=== PATIENT | female | born 1945 | race Caucasian/White ===

== ENCOUNTER → 2017-02-13 | Outpatient (CLI) | payer OTHER | LOC: FIMAGING 10:19 | PROVIDERS: ATTEND Obstetrics & Gynecology | DX: Z12.31 Encounter for screening mammogram for malignant neoplasm of breast (principal); R92.8 Other abnormal and inconclusive findings on diagnostic imaging of breast | CPT/HCPCS: G0202 ==

== ENCOUNTER → 2017-02-27 | Outpatient (CLI) | payer OTHER | LOC: FIMAGING 09:36 | PROVIDERS: ATTEND Obstetrics & Gynecology | DX: Z03.89 Encounter for observation for other suspected diseases and conditions ruled out (principal) | CPT/HCPCS: G0206 ==

== ENCOUNTER 2017-12-30 08:32 | Emergency (ER) | payer OTHER ==
[2017-12-30 08:46] VITALS: BP 156/100
--- NOTE | 2017-12-30 09:01 | EDPHY ---
H & P Stated Complaint: Hx of chronic sinus for 6-7 years, "feel terrible", photophobia Time Seen by Provider: 12/30/17 08:40 HPI/ROS: CHIEF COMPLAINT: Chronic sinusitis HISTORY OF PRESENT ILLNESS: The patient presents to the ED with symptoms surrounding chronic sinusitis. The patient has been struggling with this condition intermittently for the past 6 7 years. The patient has been recently referred to both an police specialist in the ENT. She has yet to make that appointment. The patient informs me that she no longer has a primary care relationship is feeling somewhat anxious about that. She presents to the ED today seeking solutions. The patient tells me that she does not believe she has recently been on a nasal steroid or has taken that medication for a consistent periods of time. The patient does sporadic will use Augmentin. The patient tells me she continues to have clear rhinorrhea. She denies fever. REVIEW OF SYSTEMS: A comprehensive 10 point review of systems is otherwise negative aside from elements mentioned in the history of present illness. Source: Patient Exam Limitations: No limitations - Personal History Current Tetanus/Diphtheria Vaccine: Yes - Medical/Surgical History Hx Asthma: Yes Hx Chronic Respiratory Disease: No Hx Diabetes: No Hx Cardiac Disease: No Hx Renal Disease: No Hx Cirrhosis: No Hx Alcoholism: No Hx HIV/AIDS: No Hx Splenectomy or Spleen Trauma: No Other PMH: Chronic sinusitis, asthma, - Social History Smoking Status: Former smoker - Physical Exam Exam: General Appearance: Alert, no distress Eyes: Pupils equal and round no pallor or injection ENT, Mouth: Mucous membranes moist Respiratory: There are no retractions, lungs are clear to auscultation Cardiovascular: Regular rate and rhythm Gastrointestinal: Abdomen is soft and nontender, no masses, bowel sounds normal Neurological: A&O, normal motor function, normal sensory exam, normal cranial nerves Skin: Warm and dry, no rashes Musculoskeletal: Neck is supple nontender Extremities: symmetrical, full range of motion Psychiatric: Patient is oriented X 3, there is no agitation Constitutional: Initial Vital Signs Temperature (C) 36.7 C 12/30/17 08:41 Heart Rate 87 12/30/17 08:41 Respiratory Rate 16 12/30/17 08:41 Blood Pressure 156/100 H 12/30/17 08:41 O2 Sat (%) 92 12/30/17 08:41 O2 Delivery Mode Room Air Allergies/Adverse Reactions: No Known Allergies Allergy (Verified 12/30/17 08:41) Home Medications: Medication Instructions Recorded Fluticasone Nasal [Flonase Nasal 2 sprays NASAL DAILY #1 mdi 12/30/17 [place] (RX)] Medical Decision Making ED Course/Re-evaluation: The patient is well-appearing with symptoms related to chronic sinusitis. I do feel it is reasonable to have her begin taking Flonase for the next several months to see if this improves her condition. Additionally I have informed the patient that she can contact ENT to see if her appointment could be moved up. The patient will also be provided contact numbers for new primary care physicians. Departure - Departure Disposition: Home, Routine, Self-Care Clinical Impression: Chronic sinusitis Condition: Good Instructions: Sinusitis (ED) Additional Instructions: 1. Please contact Dr. Mullen's office to see if your appointment can be moved up. 2. You have been provided the names of Internal Medicine physicians who may be accepting new patients. 3. I recommend using Flonase daily as prescribed for the next several months Referrals: Lee Mullen MD [Medical Doctor] - As per Instructions Renetta Demarco MD [Medical Doctor] - As per Instructions Tye Rodriguez MD [Medical Doctor] - As per Instructions Nestor Saleh MD [[facility] [place] Primary Care Provider] - As per Instructions
== END 2017-12-30 09:12 | disposition home or self-care (01) ==
DX: J32.9 Chronic sinusitis, unspecified (principal)

== ENCOUNTER → 2018-06-16 | Outpatient (CLI) | payer OTHER | LOC: FIMAGING 12:06 | PROVIDERS: ATTEND Internal Medicine Critical Care Medicine | DX: R91.1 Solitary pulmonary nodule (principal); I31.8 Other specified diseases of pericardium ==

== ENCOUNTER → 2018-07-06 | Outpatient (CLI) | payer OTHER | LOC: FIMAGING 15:17 | PROVIDERS: ATTEND Orthopaedic Surgery | DX: M79.605 Pain in left leg (principal) ==

== ENCOUNTER → 2018-08-06 | Outpatient (CLI) | payer OTHER | LOC: FIMAGING 09:44 ==